=== PATIENT | female | born 1945 | race Caucasian/White ===

== ENCOUNTER → 2016-10-16 | Day surgery (SDC) | payer MEDICARE, OTHER ==
[~2016-10-16] MED LIST: CALCIUM 600 +1 EAC3 PO; DAILY VALUE1 EACH PO; GLUCOPHAGE 500500 MG PO; NORVASC 5 MG TAB5 MG PO; OMEPRAZOLE20 M1 PO; PRAVASTATIN SOD40 MG PO; SYNTHROID 100100 MCG PO; VITAMIN B-1000 MCG/M IM; VITAMIN D 11000 UNIT PO
== END | disposition home or self-care (01) ==
LOC: OR 10-09 07:30
PROVIDERS: Surgery
PROC: 0DBN8ZZ Excision of Sigmoid Colon, Via Natural or Artificial Opening Endoscopic (ICD-10-PCS; principal; 2016-10-16 08:25)
DX: D12.5 Benign neoplasm of sigmoid colon (principal); K57.30 Diverticulosis of large intestine without perforation or abscess without bleeding; K64.0 First degree hemorrhoids; K21.9 Gastro-esophageal reflux disease without esophagitis; I48.91 Unspecified atrial fibrillation; E53.8 Deficiency of other specified B group vitamins; C91.10 Chronic lymphocytic leukemia of B-cell type not having achieved remission; I25.10 Atherosclerotic heart disease of native coronary artery without angina pectoris; E11.9 Type 2 diabetes mellitus without complications; E78.5 Hyperlipidemia, unspecified; I10 Essential (primary) hypertension; E03.9 Hypothyroidism, unspecified; G47.30 Sleep apnea, unspecified; E55.9 Vitamin D deficiency, unspecified; Z79.899 Other long term (current) drug therapy; Z79.52 Long term (current) use of systemic steroids
CPT/HCPCS: 82962; J7120

== ENCOUNTER 2022-01-13 11:24 | Emergency (ER) | payer MEDICARE, OTHER ==
[~2022-01-13 11:24] MED LIST changes: +AUGMENTIN 875-1 EACH PO; +CLARITIN10 MG PO; +VENTOLIN HFA 66.7 GM INH; +VITAMIN B-12100 MCG PO; +ZOFRAN ODT 4 MG4 MG SL
[2022-01-13 15:03] LABS: BUN/CREATININE RATIO 19 (0-10)
[2022-01-13 15:17] LABS: HEMOGLOBIN 14.2 gm/dl (12.3-15.3); RED BLOOD COUNT 4.74 M/UL (4.00-5.10)
[2022-01-13] MEDS ORDERED: HYDROCODON-ACE1 EAC4 PO ×2 (15:50→15:52)
[2022-01-16 16:43] LABS: WHITE BLOOD COUNT 44.5 K/UL (4.5-11.0)
== END 2022-01-13 16:40 | disposition home or self-care (01) ==
LOC: ER1 11:24
PROVIDERS: Emergency Medicine
DX: M71.22 Synovial cyst of popliteal space [Baker], left knee (principal); D72.829 Elevated white blood cell count, unspecified; I10 Essential (primary) hypertension
CPT/HCPCS: 73564; 80053; 85025; 93971; 99283

== ENCOUNTER → 2022-03-11 | Outpatient (CLI) | payer MEDICARE, OTHER ==
[~2022-03-11] MED LIST changes: +HYDROCODON-ACE1 EAC4 PO
== END ==
LOC: EXRD 13:00
DX: Z13.820 Encounter for screening for osteoporosis (principal); Z78.0 Asymptomatic menopausal state; M85.88 Other specified disorders of bone density and structure, other site
CPT/HCPCS: 77080